=== PATIENT | male | born 1980 | race Caucasian/White ===

== ENCOUNTER 2019-09-16 05:00 | Emergency (ER) | payer MEDICAID ==
[~2019-09-16] VITALS: Ht 177.8 cm; Wt 77.1 kg
[2019-09-16 05:06] VITALS: BP 100/76
[2019-09-16] MEDS ORDERED: oxyCODONE/APAP (5/325 MG) 1 UDTAB TABLET ONE (05:10)
--- NOTE | 2019-09-16 05:15 | NUR ---
DR GIBBS AT BEDSIDE FOR EVAL
[2019-09-16] MEDS ORDERED: oxyCODONE/APAP (5/325 MG) 1 UDTAB TABLET PO ONE (05:30)
== END 2019-09-16 06:03 | disposition home or self-care (01) ==
LOC: ER 05:09
DX: M79.641 Pain in right hand (principal); W22.01XA Walked into wall, initial encounter; Y93.89 Activity, other specified; Y92.89 Other specified places as the place of occurrence of the external cause; Y99.8 Other external cause status
CPT/HCPCS: 73130-TC